=== PATIENT | male | born 1960 | race Two or more races ===

== ENCOUNTER 2016-12-14 23:18 | Emergency (ER) | payer SELFPAY ==
--- NOTE | 2016-12-23 13:49 | ER ---
ADMIT: 12/14/2016 RM/LOC: ER [facility] MR#: [id number] [address] [id number] MOIZ ADAMS [facility] [place] [address] Emergency Room Report SEX: M AGE: 56 : 1960 DATE: 12/14/2016 ADDENDUM: CHIEF COMPLAINT: Elevated blood pressure. HISTORY OF PRESENT ILLNESS: This is a 56-year-old, who was picked up by police, went into the nursing home, his blood pressure was elevated, here it is 203/136. I have given him one clonidine 0.1 mg, he is pretty much asymptomatic. REVIEW OF SYSTEMS: I asked him about headaches, he is unclear if he is really having or not. He says he just gets it sometimes. He denies any chest pain, denies any shortness of breath, denies any numbness or tingling or blurred vision. Does take blood pressure meds, but does not have any at this time. Told him to follow up with his primary care physician when he is released from nursing home to start on blood pressure meds. CLINICAL IMPRESSION: Hypertension. MATT Mooney / Eulogio Balderrama MD / yuliet JOB #: [id number] CC: Eulogio Balderrama MD, Attending Physician Phani Saavedra MD, Family Physician
== END 2016-12-15 ==
LOC: ER 23:18
DX: I10 Essential (primary) hypertension (principal)